=== PATIENT | female | born 1980 | race Caucasian/White ===

== ENCOUNTER 2018-10-02 10:02 | Emergency (ER) | payer SELFPAY ==
--- NOTE | 2018-10-02 10:29 | ED Physician Documentation ---
General Adult - HPI Stated Complaint: Dental pain Chief Complaint: General Adult Onset: days ago Timing: still present Severity: moderate Further Comments: yes (Pt is a 38 yo female who fracture a molar on the bottom L of her jaw about 4 days ago. Pain has been getting worse and pt has trouble sleeping. No fever, n/v. Pt has been using tylenol but this has not helped much.) - ROS CONST: no problems EYES/ENT: other (dental pain) GI/: none MS/SKIN/LYMPH: none - PAST HX Past History: other (anxiety/depression, ) Surgeries/Procedures: cholecystectomy, hysterectomy, other (breast augmentation; bariatric sleeve) Allergies/Adverse Reactions: Allergies Allergy/AdvReac Type Severity Reaction Status Date / Time No Known Allergies Allergy Verified 10/02/18 10:14 Home Medications: Ambulatory Orders Medication Instructions Recorded Quetiapine Fumarate [Seroquel Xr] 300 mg PO HS 10/02/18 Venlafaxine HCl [Effexor Xr] 75 mg PO DAILY 10/02/18 Zolpidem Tartrate 10 mg PO HS PRN 10/02/18 - SOCIAL HX Smoking History: less than 1 pack/day - FAMILY HX Family History: No - VITAL SIGNS Vital Signs: Vital Signs Temp Pulse Resp BP Pulse Ox 97.7 F 91 H 16 139/94 99 10/02/18 10:15 10/02/18 10:15 10/02/18 10:15 10/02/18 10:15 10/02/18 10:15 - REVIEWED ASSESSMENTS Nursing Assessment Reviewed: Yes Vitals Reviewed: Yes Progress - Progress Progress: Rx Penicillin VK 500 mg. Take one by mouth every 8 hours for 10 days. Rx [place] (5/325). Take one or two every 4 to 6 hours as needed for pain. Follow up with dentist as soon as possible. General Adult Physical Exam - PHYSICAL EXAM GENERAL APPEARANCE: mild distress EENT: pharynx normal, other (Fx L lower molar) NECK: normal inspection, supple RESPIRATORY: no resp distress, chest non-tender, breath sounds normal CVS: reg rate & rhythm, heart sounds normal ABDOMEN: soft, no organomegaly, normal bowel sounds BACK: normal inspection, no CVA tenderness SKIN: warm/dry, normal color EXTREMITIES: non-tender, normal range of motion, no evidence of injury NEURO: oriented X3, motor nml, sensation nml Discharge Clincal Impression: Pain, dental Referrals: Primary Doctor,No [Primary Care Provider] - Condition: Good Disposition: 01 HOME, SELF-CARE Decision to Admit: NO Decision Time: 10:33
[2018-10-02 11:01] VITALS: BP 132/87
== END 2018-10-02 10:46 | disposition home or self-care (01) ==
LOC: ED 10:02
DX: K08.89 Other specified disorders of teeth and supporting structures (principal); Z72.0 Tobacco use
CPT/HCPCS: 99281; 99282